=== PATIENT | female | born 1980 | race Caucasian/White ===

== ENCOUNTER 2017-03-10 12:34 | Emergency (ER) | payer SELFPAY ==
[2017-03-10 13:00] VITALS: BP 106/62; PULSE 57; TEMP 99.1; BMI 25.9
--- NOTE | 2017-03-10 13:02 | PDOC ---
History of Present Illness - General Chief Complaint: Headache Stated Complaint: HEADACHE Time Seen by Provider: 03/10/17 13:01 History Source: Patient, Old Records Exam Limitations: No Limitations - History of Present Illness Initial Comments: 03/10/17 13:12 36-year-old female with no significant past medical history presents to the emergency Department with complaints of 6 month history of posterior headache that has occurred almost daily. The patient states that on Friday she experienced the headache associated with some right-sided facial numbness and tingling that resolved by the next day. She is taken Tylenol with some relief of the pain. She denies URI symptoms. She denies photophobia, nausea, vomiting or neck stiffness. She has not sought medical attention until today because she said that she felt dizzy. Past History - Past Medical History Allergies/Adverse Reactions: Allergies Allergy/AdvReac Type Severity Reaction Status Date / Time No Known Allergies Allergy Verified 03/10/17 13:09 Home Medications: Ambulatory Orders Ambien 10 mg PO DAILY PRN 03/10/17 Anemia: No Asthma: No Cancer: No Cardiac Disorders: No CVA: No COPD: No CHF: No Dementia: No Diabetes: No GI Disorders: Yes (DIVERTICULITIS) Disorders: No HTN: No Hypercholesterolemia: Yes Liver Disease: No Seizures: No Thyroid Disease: No - Surgical History Abdominal Surgery: Yes (HIATAL HERNIA: 06/27/15) Appendectomy: Yes Cardiac Surgery: No Cholecystectomy: No Gastric Stapling: (GASTRIC BYPASS/SLEEVE) Lung Surgery: No Neurologic Surgery: No Orthopedic Surgery: No - Reproductive History (#): 4 Para: 2 Ectopic : Yes Therapeutic (s) & number: No Spontaneous : 1 - Immunization History Td Vaccination: Yes TDAP Vaccination: Yes Immunization Up to Date: Yes - Psycho/Social/Smoking Cessation Hx Anxiety: No Suicidal Ideation: No Smoking History: Current every day smoker Have you smoked in the past 12 months: Yes Number of Cigarettes Smoked Daily: 4 Information on smoking cessation initiated: Yes 'Breaking Loose' booklet given: 03/10/17 Hx Alcohol Use: No Drug/Substance Use Hx: No Substance Use Type: None Hx Substance Use Treatment: No Review of Systems - Review of Systems Able to Perform ROS?: Yes Is the patient limited Wolof proficient: No Constitutional: No: Symptoms Reported HEENTM: No: Symptoms Reported Respiratory: No: Symptoms reported Cardiac (ROS): No: Symptoms Reported ABD/GI: No: Symptoms Reported : No: Symptoms Reported Musculoskeletal: No: Symptoms Reported Integumentary: No: Symptoms Reported Neurological: Yes: See HPI *Physical Exam - Vital Signs Last Vital Signs Temp Pulse Resp BP Pulse Ox 99.1 F 57 L 16 106/62 99 03/10/17 12:55 03/10/17 12:55 03/10/17 12:55 03/10/17 12:55 03/10/17 12:55 - Physical Exam Comments: 03/10/17 13:13 GENERAL: Well developed, well nourished. Awake and alert. No acute distress. HEENT: Normocephalic, atraumatic. PERRLA, EOMI. No conjunctival pallor. Sclera are non- icteric. Moist mucous membranes. Oropharynx is clear. NECK: Supple. Full ROM. No JVD. No lymphadenopathy. CARDIOVASCULAR: Regular rate and rhythm. No murmurs, rubs, or gallops. Distal pulses are 2+ and symmetric. PULMONARY: No evidence of respiratory distress. Lungs clear to auscultation bilaterally. No wheezing, rales or rhonchi. ABDOMINAL: Soft. Non-tender. Non-distended. No rebound or guarding. No organomegaly. Normoactive bowel sounds. MUSCULOSKELETAL Normal range of motion at all joints. No bony deformities or tenderness. No CVA tenderness. EXTREMITIES: No cyanosis. No clubbing. No edema. No calf tenderness. SKIN: Warm and dry. Normal capillary refill. No rashes. No jaundice. NEUROLOGICAL: Alert, awake, appropriate. Cranial nerves 2-12 intact. Grossly non-focal exam. PSYCHIATRIC: Cooperative. Good eye contact. Appropriate mood and affect. Medical Decision Making - Medical Decision Making 03/10/17 13:14 36-year-old female with no significant past medical history who presents the emergency department with chronic posterior headaches. Differential diagnosis includes but is not limited to: Intracranial mass, Chiari malformation, migraine headache, tension headache. Plan: 1. CT head 2. Pain management 3. Urine analysis and urine 4. Observe and reevaluate 5. CT head is negative will discharge home with referral to neurology and follow -up with her primary care physician. 03/10/17 13:54 Addendum: CT head is negative. *DC/Admit/Observation/Transfer Diagnosis at time of Disposition: Headache - Discharge Dispostion Disposition: HOME Condition at time of disposition: Stable Admit: No - Patient Instructions Printed Discharge Instructions: DI for Headache Additional Instructions: You have chronic headaches. Please follow-up with your primary care physician who will refer you to see a neurologist. You h=may take tylenol or ibuprofen for the pain. Return to the ED if your symptoms persist, worsen or new symptoms arise.
[2017-03-10 13:16] LABS: URINE APPEARANCE Clear; URINE BILIRUBIN Negative (NEGATIVE); URINE GLUCOSE (UA) Negative (NEGATIVE); URINE KETONE Negative (NEGATIVE); URINE LEUK ESTERASE Negative (NEGATIVE); URINE NITRITE Negative (NEGATIVE); URINE PROTEIN Negative (NEGATIVE); URINE UROBILINOGEN 0.2 E.U/dl (0.2-1.0)
[2017-03-10 13:17] LABS: URINE BLOOD TRACE (NEGATIVE); URINE COLOR YELLOW
[2017-03-10 14:20] LABS: URINE MUCUS 1+; URINE WBC 0-1 (3-5)
== END 2017-03-10 14:00 | disposition home or self-care (01) ==
LOC: FER 12:34
DX: R51 Headache (principal); F17.210 Nicotine dependence, cigarettes, uncomplicated; E78.00 Pure hypercholesterolemia, unspecified; Z98.84 Bariatric surgery status
CPT/HCPCS: 70450-TC; 81003; 81015; 84703; 99283-25

== ENCOUNTER 2017-08-30 14:37 | Emergency (ER) | payer BC ==
[2017-08-30 15:09] VITALS: BMI 26.7
--- NOTE | 2017-08-30 15:23 | PDOC ---
History of Present Illness - General Chief Complaint: Weakness Stated Complaint: WEAKNESS, CHILLS History Source: Patient Exam Limitations: No Limitations - History of Present Illness Initial Comments: 08/30/17 17:51 This 37 yr old female with c/o facial numbness/burning, cold sore on the right side of lip, episode of chest pain and shortness of breath x 1 earlier. She has a hx of gastric sleeve and marjan several years ago. She is not on any medications. 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 Pt was seen in February noted for several similar complaints . She did not follow [facility] a neurologist like suggested. 08/30/17 17:53 Past History - Past Medical History Allergies/Adverse Reactions: Allergies Allergy/AdvReac Type Severity Reaction Status Date / Time No Known Allergies Allergy Verified 08/30/17 15:09 Home Medications: Ambulatory Orders Ambien 10 mg PO DAILY PRN 03/10/17 Acyclovir [Zovirax -] 400 mg PO TID #21 tablet 08/30/17 Anemia: No Asthma: No Cancer: No Cardiac Disorders: No CVA: No COPD: No CHF: No Dementia: No Diabetes: No GI Disorders: Yes (DIVERTICULITIS) Disorders: No HTN: No Hypercholesterolemia: Yes Liver Disease: No Seizures: No Thyroid Disease: No - Surgical History Abdominal Surgery: Yes (HIATAL HERNIA: 06/27/15) Appendectomy: Yes Cardiac Surgery: No Cholecystectomy: No Gastric Stapling: (GASTRIC BYPASS/SLEEVE) Lung Surgery: No Neurologic Surgery: No Orthopedic Surgery: No - Reproductive History (#): 4 Para: 2 Ectopic : Yes Therapeutic (s) & number: No Spontaneous : 1 - Immunization History Td Vaccination: Yes TDAP Vaccination: Yes Immunization Up to Date: Yes - Suicide/Smoking/Psychosocial Hx Smoking History: Current every day smoker Have you smoked in the past 12 months: Yes Number of Cigarettes Smoked Daily: 5 Information on smoking cessation initiated: No 'Breaking Loose' booklet given: 03/10/17 Hx Alcohol Use: No Drug/Substance Use Hx: No Substance Use Type: None Hx Substance Use Treatment: No Review of Systems - Review of Systems Able to Perform ROS?: Yes Constitutional: No: Chills, Fever, Night Sweats HEENTM: Yes: Other (lip with leison suspicious for herpetic). No: Symptoms Reported Respiratory: Yes: Shortness of Breath. No: Cough, SOB with Exertion, SOB at Rest, Productive cough Cardiac (ROS): Yes: Chest Pain. No: Lightheadedness, Palpitations, Chest Tightness ABD/GI: No: Symptoms Reported : No: Symptoms Reported Musculoskeletal: No: Symptoms Reported Integumentary: No: Symptoms Reported Neurological: Yes: See HPI, Headache, Numbness, Paresthesia, Tingling, Other ( right side facial numb, tingling, burning for past 3 days. ). No: Seizure, Tremors, Weakness, Unsteady Gait, Ataxia, Dizziness Psychiatric: Yes: Anxiety Endocrine: No: Symptoms Reported Hematologic/Lymphatic: No: Symptoms Reported *Physical Exam - Vital Signs Last Vital Signs Temp Pulse Resp BP Pulse Ox 97.9 F 56 L 18 104/60 98 08/30/17 14:37 08/30/17 14:37 08/30/17 14:37 08/30/17 14:37 08/30/17 14:37 - Physical Exam General Appearance: Yes: Appropriately Dressed HEENT: positive: Normal Voice Respiratory/Chest: positive: Lungs Clear Cardiovascular: positive: Regular Rhythm, Regular Rate Gastrointestinal/Abdominal: positive: Normal Bowel Sounds, Flat, Soft Musculoskeletal: positive: Normal Inspection Extremity: positive: Normal Capillary Refill, Normal Inspection Integumentary: positive: Normal Color, Dry Neurologic: positive: adjunct trainer II-XII NML intact (neg cincinati scale, smile intact, grimace intact, EOM norm, ), Fully Oriented, Alert, Numbness. negative: EOM Palsy, Facial Droop, Confused ED Treatment Course - LABORATORY CBC & Chemistry Diagram: 08/30/17 16:14 08/30/17 16:14 Medical Decision Making - Medical Decision Making 08/30/17 18:01 Pt seen and examined. Pt with family at bedside with c/o right side facial numbness and right lip cold sore, with mild headache, one episode of chest and sob. A/P: -labs -head CT -fluids -reglan -urine It is likely that these symptoms are due to viral infection with noted lip leision and facial numb/tingling suggestive of pending Phillips's, possible migraine , herpetic lesion. WBC noted to be elevated to 12. 7 but no shift, fever, chills. she is noted to be anxious and suspicious for anxiousness causing other vague symptoms pending results. 08/30/17 18:37 Labs noted, wbc elevated. head ct pending plan on discharging to home with antiviral and have her follow up with neurology and PMD *DC/Admit/Observation/Transfer Diagnosis at time of Disposition: Viral infection Headache Qualifiers: Headache type: unspecified Headache chronicity pattern: acute headache Intractability: not intractable Qualified Code(s): R51 - Headache; R51 - Headache - Discharge Dispostion Condition at time of disposition: Stable Admit: No - Patient Instructions Printed Discharge Instructions: DI for Phillips's Palsy Additional Instructions: You have been seen and treated for your symptoms -headache may be migraine and needs a work up with neurology, you received pain meds and fluids for this treatment -facial numbness/tingling may be an early onset of [place]' Palsy and I am discharging you with acyclovir for one week -chest pain and shortness of breath episode is now subsided without treatment and it is suggestive of anxiety with recent viral illness that is presenting. Any symptoms that worsen, please return to ER. - Post Discharge Activity Forms/Work/School Notes: Back to Work
[2017-08-30] MEDS ORDERED: METOCLOPRAMIDE HCL INJECTION 10 MG/2 ML VIAL IVPUSH ONE (15:44)
[2017-08-30] MEDS ORDERED: ACETAMINOPHEN 1000 MG/100 ML VIAL (NON FORMULARY) IVPB ONE (15:44)
[2017-08-30] MEDS ORDERED: SODIUM CHLORIDE 1,000 ML IV STA (15:44)
[2017-08-30 16:24] LABS: BASOPHIL 0.5 % (0-2.0); EOSINOPHIL 1.3 % (0-4.5); MCH 25.7 pg (25.7-33.7); MEAN CELL VOLUME 80.3 fl (80-96); MEAN PLT VOLUME 9.8 fl (7.5-11.1); NEUTROPHILS 63.1 % (42.8-82.8); PLATELET COUNT 225 K/MM3 (134-434); RDW 15.7 % (11.6-15.6); WHITE BLOOD COUNT 12.4 K/mm3 (4.0-10.0)
[2017-08-30 16:27] LABS: URINE APPEARANCE CLEAR; URINE BILIRUBIN NEGATIVE (NEGATIVE); URINE BLOOD NEGATIVE (NEGATIVE); URINE COLOR LTYELLOW; URINE GLUCOSE (UA) NEGATIVE (NEGATIVE); URINE KETONE NEGATIVE (NEGATIVE); URINE NITRITE NEGATIVE (NEGATIVE); URINE PROTEIN NEGATIVE (NEGATIVE); URINE UROBILINOGEN NEGATIVE mg/dL (0.2-1.0)
[2017-08-30] MEDS ORDERED: METOCLOPRAMIDE HCL INJECTION 10 MG/2 ML VIAL ONE (16:31)
[2017-08-30 16:53] LABS: ALBUMIN 3.6 g/dl (3.4-5.0); ALK PHOS 51 U/L (45-117); ANION GAP 7 (8-16); BILIRUBIN,TOTAL 0.2 mg/dL (0.2-1.0); CALCIUM 8.9 mg/dL (8.5-10.1); CO2 29 mmol/L (21-32); CREATININE 0.8 mg/dL (0.55-1.02); GLUCOSE,RANDOM 75 mg/dL (74-106); SGOT/AST 11 U/L (15-37); SGPT/ALT 15 U/L (12-78); TOT PROT 7.1 g/dl (6.4-8.2)
[2017-08-30 18:23] LABS: URINE LEUK ESTERASE Negative (NEGATIVE)
[2017-08-30] MEDS ORDERED: KETOROLAC TROMETHAMINE 30 MG/1 ML VIAL IVPUSH ONE (19:32)
[2017-08-30] MEDS ORDERED: KETOROLAC TROMETHAMINE 30 MG/1 ML VIAL ONE (19:36)
--- NOTE | 2017-08-30 20:00 | PDOC ---
*Physical Exam - Vital Signs Last Vital Signs Temp Pulse Resp BP Pulse Ox 97.9 F 56 L 18 104/60 98 08/30/17 14:37 08/30/17 14:37 08/30/17 14:37 08/30/17 14:37 08/30/17 14:37 - Physical Exam Comments: 08/30/17 19:59 CAT scan head without contrast: The brain parenchymal demonstrates normal attenuation without focal mass or mass effect. The ventricles are not enlarged. No acute intracranial hemorrhage or acute infarction. ED Treatment Course - LABORATORY CBC & Chemistry Diagram: 08/30/17 16:14 08/30/17 16:14 - ADDITIONAL ORDERS Additional order review: Laboratory Results 08/30/17 08/30/17 16:14 16:14 Sodium 139 Potassium 4.1 Chloride 103 Carbon Dioxide 29 Anion Gap 7 L BUN 11 D Creatinine 0.8 D Creat Clearance w eGFR > 60 Random Glucose 75 Calcium 8.9 Total Bilirubin 0.2 D AST 11 L ALT 15 D Alkaline Phosphatase 51 Total Protein 7.1 Albumin 3.6 Urine Color Ltyellow Urine Appearance Clear Urine pH 5.0 Ur Specific [place] 1.020 Urine Protein Negative Urine Glucose (UA) Negative Urine Ketones Negative Urine Blood Negative Urine Nitrite Negative Urine Bilirubin Negative Urine Urobilinogen Negative Ur Leukocyte Esterase Negative Urine HCG, Qual Negative 08/30/17 16:14 RBC 4.94 MCV 80.3 MCHC 32.0 RDW 15.7 H MPV 9.8 Neutrophils % 63.1 Lymphocytes % 27.3 D Monocytes % 7.8 Eosinophils % 1.3 D Basophils % 0.5 - Medications Given in the ED: ED Medications Discontinued Medications Generic Name Dose Route Start Last Admin Trade Name Rosalba PRN Reason Stop Dose Admin Acetaminophen 1,000 mg 08/30/17 15:44 08/30/17 16:15 Ofirmev Injection - IVPB 08/30/17 15:45 1,000 mg ONCE ONE Administration Sodium Chloride 1,000 mls @ 1,000 mls/hr 08/30/17 15:44 08/30/17 16:28 Normal Saline - IV 08/30/17 16:43 1,000 mls/hr ASDIR STA Administration Ketorolac Tromethamine 30 mg 08/30/17 19:32 08/30/17 19:34 Toradol Injection - IVPUSH 10/07/17 19:33 30 mg ONCE ONE Administration Metoclopramide HCl 10 mg 08/30/17 15:44 08/30/17 16:32 Reglan Injection - IVPUSH 08/30/17 15:45 10 mg ONCE ONE Administration *DC/Admit/Observation/Transfer Diagnosis at time of Disposition: Viral infection Headache Qualifiers: Headache type: unspecified Headache chronicity pattern: acute headache Intractability: not intractable Qualified Code(s): R51 - Headache - Prescriptions Prescriptions: Acyclovir [Zovirax -] 400 mg PO TID #21 capsule - Referrals - Patient Instructions Printed Discharge Instructions: DI for Phillips's Palsy Additional Instructions: You have been seen and treated for your symptoms -headache may be migraine and needs a work up with neurology, you received pain meds and fluids for this treatment -facial numbness/tingling may be an early onset of [place]' Palsy and I am discharging you with acyclovir for one week -chest pain and shortness of breath episode is now subsided without treatment and it is suggestive of anxiety with recent viral illness that is presenting. Any symptoms that worsen, please return to ER. Print Language: BRUNEIAN - Post Discharge Activity Forms/Work/School Notes: Back to Work
[2017-08-30 20:14] VITALS: BP 106/59; PULSE 65; TEMP 98.4
[2017-08-30] MEDS ORDERED: ACYCLOVIR 400 MG TABLET PO ONE (20:53)
[2017-08-30] MEDS ORDERED: ACYCLOVIR 200 MG CAPSULE ONE (20:56)
--- NOTE | 2017-08-31 08:09 | PDOC ---
*Physical Exam - Vital Signs Last Vital Signs Temp Pulse Resp BP Pulse Ox 98.4 F 65 18 106/59 98 08/30/17 20:13 08/30/17 20:13 08/30/17 20:13 08/30/17 20:13 08/30/17 20:13 ED Treatment Course - LABORATORY CBC & Chemistry Diagram: 08/30/17 16:14 08/30/17 16:14 - ADDITIONAL ORDERS Additional order review: 08/30/17 16:14 RBC 4.94 MCV 80.3 MCHC 32.0 RDW 15.7 H MPV 9.8 Neutrophils % 63.1 Lymphocytes % 27.3 D Monocytes % 7.8 Eosinophils % 1.3 D Basophils % 0.5 - Medications Given in the ED: ED Medications Discontinued Medications Generic Name Dose Route Start Last Admin Trade Name Freq PRN Reason Stop Dose Admin Acetaminophen 1,000 mg 08/30/17 15:44 08/30/17 16:15 Ofirmev Injection - IVPB 08/30/17 15:45 1,000 mg ONCE ONE Administration Acyclovir 400 mg 08/30/17 20:53 08/30/17 20:59 Zovirax - PO 08/30/17 20:54 400 mg ONCE ONE Administration Sodium Chloride 1,000 mls @ 1,000 mls/hr 08/30/17 15:44 08/30/17 16:28 Normal Saline - IV 08/30/17 16:43 1,000 mls/hr ASDIR STA Administration Ketorolac Tromethamine 30 mg 08/30/17 19:32 08/30/17 19:34 Toradol Injection - IVPUSH 08/30/17 19:33 30 mg ONCE ONE Administration Metoclopramide HCl 10 mg 08/30/17 15:44 08/30/17 16:32 Reglan Injection - IVPUSH 08/30/17 15:45 10 mg ONCE ONE Administration Medical Decision Making - Medical Decision Making 08/31/17 08:05 Agree with SWATCH CUTTER/PA's assessment and plan. 37 F with facial tingling, 2nd visit here for same complaint. Pt with NONFOCAL neuro exam upon my evaluation. Normal cranial nerves, normal sensation, normal strength in all extremities. Pt reported transient episode of chest pain/SOB earlier in the day that has since subsided. She states that she has had multiple similar episodes in the past in the context of anxiety, which she believes is the cause of her episode today. I offered her EKG and checking cardiac enzymes to r/o ACS. However, pt refusing at this time, stating she feels fine and does not wish to have additional labs drawn. Pt with no cardiac risk factors, so my suspicion for ACS extremely low. Labs and CTH wnl. Pt with no neuro deficits at this time and no complaints. Pt well appearing with normal vitals. Clinically stable for DC with neuro f/u. *DC/Admit/Observation/Transfer Diagnosis at time of Disposition: Viral infection Headache Qualifiers: Headache type: unspecified Headache chronicity pattern: acute headache Intractability: not intractable Qualified Code(s): R51 - Headache - Prescriptions Prescriptions: RX: Acyclovir [Zovirax -] 400 mg PO TID #21 capsule - Referrals - Patient Instructions Printed Discharge Instructions: DI for Phillips's Palsy Additional Instructions: You have been seen and treated for your symptoms -headache may be migraine and needs a work up with neurology, you received pain meds and fluids for this treatment -facial numbness/tingling may be an early onset of [place]' Palsy and I am discharging you with acyclovir for one week -chest pain and shortness of breath episode is now subsided without treatment and it is suggestive of anxiety with recent viral illness that is presenting. Any symptoms that worsen, please return to ER. Print Language: PASHTO - Post Discharge Activity Forms/Work/School Notes: Back to Work - Attestations Physician Attestion: 08/31/17 08:09 I, Dr. Kevin Chaney MD, attest that this document has been prepared under my direction and personally reviewed by me in its entirety. I further attest, that it accurately reflects all work, treatment, procedures and medical decision -making performed by me.
--- NOTE | 2017-09-05 09:20 | EKG ---
Test Reason : Blood Pressure : / mmHG Vent. Rate : 050 BPM Atrial Rate : 050 BPM P-R Int : 118 ms QRS Dur : 080 ms QT Int : 432 ms P-R-T Axes : 059 050 040 degrees QTc Int : 393 ms SINUS BRADYCARDIA WHEN COMPARED WITH ECG OF 03-JUL-2015 21:59, NO SIGNIFICANT CHANGE WAS FOUND Confirmed by ROXANNA OKEEFE MD ([id number]) on 09/05/2017 9:20:16 AM Referred By: Confirmed By:ROXANNA OKEEFE MD
== END 2017-08-30 20:50 | disposition home or self-care (01) ==
LOC: JER 14:37
PROC: 3E033NZ Introduction of Analgesics, Hypnotics, Sedatives into Peripheral Vein, Percutaneous Approach (ICD-10-PCS; principal; 2017-08-30)
PROC: 3E0333Z Introduction of Anti-inflammatory into Peripheral Vein, Percutaneous Approach (ICD-10-PCS; 2017-08-30)
PROC: 3E033GC Introduction of Other Therapeutic Substance into Peripheral Vein, Percutaneous Approach (ICD-10-PCS; 2017-08-30)
PROC: 3E0337Z Introduction of Electrolytic and Water Balance Substance into Peripheral Vein, Percutaneous Approach (ICD-10-PCS; 2017-08-30)
DX: B34.9 Viral infection, unspecified (principal); R51 Headache; Z98.84 Bariatric surgery status; E78.00 Pure hypercholesterolemia, unspecified; F17.210 Nicotine dependence, cigarettes, uncomplicated
CPT/HCPCS: 36415; 70450-TC; 80053; 81003; 84703; 85025; 93005; 93010; 99283-25

== ENCOUNTER 2022-01-28 15:04 | Emergency (ER) | payer BC, OTHER ==
[2022-01-28 16:23] VITALS: TEMP 98.4; BMI 31.0
[2022-01-28] MEDS ORDERED: FAMOTIDINE 10 MG TABLET PO ONE (17:28)
[2022-01-28] MEDS ORDERED: MECLIZINE HCL 25 MG TABLET (FP) PO ONE (17:28)
[2022-01-28] MEDS ORDERED: ONDANSETRON *ODT* 4 MG TABLET SL ONE (17:28)
[2022-01-28] MEDS ORDERED: ACETAMINOPHEN 500 MG TABLET (FP) PO ONE (17:28)
[2022-01-28] MEDS ORDERED: MAG HYDROX/AL HYDROX/SIMETH -MYLANTA- ORAL SUSPENSION PO ONE (17:28)
[2022-01-28] MEDS ORDERED: SODIUM CHLORIDE 0.9% 500 ML INFUS.BAG IV ONE (17:29)
[2022-01-28] MEDS ORDERED: ACETAMINOPHEN 325 MG TABLET (FP) ONE (17:58)
[2022-01-28] MEDS ORDERED: ONDANSETRON *ODT* 4 MG TABLET ONE (17:58)
[2022-01-28] MEDS ORDERED: FAMOTIDINE 10 MG TABLET ONE (17:58)
[2022-01-28] MEDS ORDERED: MECLIZINE HCL 25 MG TABLET (FP) ONE (17:58)
[2022-01-28] MEDS ORDERED: MAG HYDROX/AL HYDROX/SIMETH 30 ML UNIT-DOSE CUP ONE (17:59)
[2022-01-28 18:07] LABS: BASO % 0.3 % (0-2.0); EOS % 0.3 % (0-4.5); HEMATOCRIT 30.5 % (32.4-45.2); HEMOGLOBIN 9.4 GM/dL (10.7-15.3); MCH 20.7 pg (25.7-33.7); MCHC 30.6 g/dl (32.0-36.0); MEAN CELL VOLUME 67.6 fl (80-96); MEAN PLT VOLUME 8.8 fl (7.5-11.1); MONO % 5.6 % (3.8-10.2); NEUT % 79.8 % (42.8-82.8); PLATELET COUNT 335 10^3/uL (134-434); RBC 4.51 M/mm3 (3.60-5.2); RDW 16.8 % (11.6-15.6); WHITE BLOOD COUNT 11.6 K/mm3 (4.0-10.0)
[2022-01-28 18:31] LABS: CALCIUM 9.5 mg/dL (8.5-10.1)
[2022-01-28 18:32] LABS: ALBUMIN 3.2 g/dl (3.4-5.0); MAGNESIUM 2.2 mg/dL (1.8-2.4)
[2022-01-28 18:35] LABS: CREATININE 0.7 mg/dL (0.55-1.3)
[2022-01-28 18:36] LABS: BILIRUBIN,TOTAL 0.3 mg/dL (0.2-1); TOT PROT 6.7 g/dl (6.4-8.2)
[2022-01-28 19:18] VITALS: BP 98/47; PULSE 60
[2022-01-28] MEDS ORDERED: METOCLOPRAMIDE HCL INJECTION 10 MG/2 ML VIAL IVPUSH ONE (19:38)
[2022-01-28] MEDS ORDERED: diphenhydrAMINE HCL 25 MG CAPSULE (FP) PO ONE ×2 (19:39→19:45)
[2022-01-28] MEDS ORDERED: METOCLOPRAMIDE HCL INJECTION 10 MG/2 ML VIAL ONE (19:45)
[2022-01-28 19:54] LABS: URINE APPEARANCE CLEAR; URINE BILIRUBIN NEGATIVE (NEGATIVE); URINE COLOR YELLOW; URINE GLUCOSE (UA) NEGATIVE (NEGATIVE); URINE KETONE NEGATIVE (NEGATIVE); URINE LEUK ESTERASE NEGATIVE (NEGATIVE); URINE NITRITE NEGATIVE (NEGATIVE); URINE PROTEIN NEGATIVE (NEGATIVE); URINE UROBILINOGEN 0.2 mg/dL (0.2-1.0)
[2022-01-28 23:26] LABS: ANISOCYTOSIS 2+; MACROCYTOSIS 0; OVALOCYTE 2+; TEAR DROP CELLS 1+
== END 2022-01-28 20:59 | disposition home or self-care (01) ==
LOC: JER 15:04
PROC: 3E033GC Introduction of Other Therapeutic Substance into Peripheral Vein, Percutaneous Approach (ICD-10-PCS; principal; 2022-01-28)
DX: R51.9 Headache, unspecified (principal); R19.7 Diarrhea, unspecified; R10.9 Unspecified abdominal pain
CPT/HCPCS: 36415; 71045-TC-FY; 80053; 81003; 82962; 83605; 83690; 83735; 84484; 84703; 85025; 86850; 86900; 86901; 87086; 93005; 93010; 99285-25; Q0162

== ENCOUNTER 2022-03-09 11:15 | Emergency (ER) | payer BC ==
[2022-03-09 11:24] VITALS: BMI 31.9
[2022-03-09] MEDS ORDERED: METOCLOPRAMIDE HCL INJECTION 10 MG/2 ML VIAL IVPB ONE (11:50)
[2022-03-09] MEDS ORDERED: SODIUM CHLORIDE 0.9% 500 ML INFUS.BAG IV ONE (11:50)
[2022-03-09] MEDS ORDERED: ACETAMINOPHEN 1000 MG/100 ML BAG IVPB ONE (11:50)
[2022-03-09] MEDS ORDERED: ACETAMINOPHEN INJECTION 100 ML IVPB ONE (12:11)
[2022-03-09] MEDS ORDERED: METOCLOPRAMIDE HCL INJECTION 10 MG/2 ML VIAL ONE (12:11)
[2022-03-09 12:18] LABS: BASO % 0.5 % (0-2.0); EOS % 0.6 % (0-4.5); HEMATOCRIT 32.7 % (32.4-45.2); HEMOGLOBIN 10.5 GM/dL (10.7-15.3); LYMPH % 26.3 % (8-40); MCH 22.6 pg (25.7-33.7); MCHC 32.1 g/dl (32.0-36.0); MEAN CELL VOLUME 70.4 fl (80-96); MEAN PLT VOLUME 8.7 fl (7.5-11.1); MONO % 6.3 % (3.8-10.2); NEUT % 66.3 % (42.8-82.8); PLATELET COUNT 309 10^3/uL (134-434); RBC 4.64 M/mm3 (3.60-5.2); RDW 23.3 % (11.6-15.6); WHITE BLOOD COUNT 7.1 K/mm3 (4.0-10.0)
[2022-03-09 12:28] LABS: INR 0.99 (0.83-1.09); PROTHROMBIN TIME (PATIENT) 11.4 SEC (9.7-13.0)
[2022-03-09 12:30] LABS: ACTIVATED PTT 27.6 SECONDS (25.2-36.5)
[2022-03-09 12:31] LABS: PH,URINE 8.5 (5.0-8.0); URINE APPEARANCE CLOUDY; URINE BILIRUBIN NEGATIVE (NEGATIVE); URINE COLOR YELLOW; URINE GLUCOSE (UA) NEGATIVE (NEGATIVE); URINE KETONE NEGATIVE (NEGATIVE); URINE LEUK ESTERASE NEGATIVE (NEGATIVE); URINE NITRITE NEGATIVE (NEGATIVE); URINE PROTEIN NEGATIVE (NEGATIVE)
[2022-03-09 12:49] LABS: ALBUMIN 3.4 g/dl (3.4-5.0); BLOOD UREA NITROGEN 12.8 mg/dL (7-18); CALCIUM 8.8 mg/dL (8.5-10.1); MAGNESIUM 2.2 mg/dL (1.8-2.4)
[2022-03-09 12:52] LABS: CREATININE 0.9 mg/dL (0.55-1.3)
[2022-03-09 12:54] LABS: BILIRUBIN,TOTAL 0.2 mg/dL (0.2-1); TOT PROT 6.6 g/dl (6.4-8.2)
[2022-03-09] MEDS ORDERED: MECLIZINE HCL 25 MG TABLET (FP) PO ONE (13:24)
[2022-03-09] MEDS ORDERED: MECLIZINE HCL 25 MG TABLET (FP) ONE ×2 (13:32→13:35)
[2022-03-09 13:42] LABS: ANISOCYTOSIS 3+; MACROCYTOSIS 0; OVALOCYTE 1+
[2022-03-09 14:04] VITALS: BP 133/78; PULSE 78; TEMP 97.9
== END 2022-03-09 14:03 | disposition home or self-care (01) ==
LOC: JER 11:15
PROC: 3E0333Z Introduction of Anti-inflammatory into Peripheral Vein, Percutaneous Approach (ICD-10-PCS; principal; 2022-03-09)
PROC: 3E033GC Introduction of Other Therapeutic Substance into Peripheral Vein, Percutaneous Approach (ICD-10-PCS; 2022-03-09)
DX: R51.9 Headache, unspecified (principal)
CPT/HCPCS: 36415; 70450-TC; 80053; 81003; 83735; 84703; 85025; 85610; 85730; 87086; 93005; 93010; 99285-25

== ENCOUNTER 2022-10-08 20:22 | Emergency (ER) | payer BC ==
[2022-10-08 20:28] VITALS: BP 120/80; PULSE 51; RESP 18; TEMP 98.2; BMI 34.3
[2022-10-08] MEDS ORDERED: KETOROLAC TROMETHAMINE 15 MG/ML VIAL IVPUSH ONE (21:27)
[2022-10-08] MEDS ORDERED: FAMOTIDINE 20 MG/50 ML IVPB 20 MG/50 ML MG IVPB ONE (21:27)
[2022-10-08] MEDS ORDERED: SODIUM CHLORIDE 0.9% 500 ML INFUS.BAG IV ONE (21:27)
[2022-10-08] MEDS ORDERED: MAG HYDROX/AL HYDROX/SIMETH 30 ML UNIT-DOSE CUP PO ONE (21:27)
[2022-10-08] MEDS ORDERED: KETOROLAC TROMETHAMINE 15 MG/ML VIAL ONE (22:05)
[2022-10-08] MEDS ORDERED: MAG HYDROX/AL HYDROX/SIMETH 30 ML UNIT-DOSE CUP ONE (22:05)
[2022-10-08] MEDS ORDERED: FAMOTIDINE 10 MG/ML VIAL IVPB ONE (22:05)
[2022-10-08 22:26] LABS: BASO % 0.4 % (0-2.0); HEMATOCRIT 37.3 % (32.4-45.2); HEMOGLOBIN 12.5 GM/dL (10.7-15.3); LYMPH % 27.9 % (8-40); MCH 27.8 pg (25.7-33.7); MCHC 33.6 g/dl (32.0-36.0); MEAN CELL VOLUME 82.7 fl (80-96); MONO % 5.8 % (3.8-10.2); NEUT % 64.9 % (42.8-82.8); PLATELET COUNT 310 10^3/uL (134-434); RBC 4.51 M/mm3 (3.60-5.2); RDW 13.2 % (11.6-15.6); WHITE BLOOD COUNT 9.9 K/mm3 (4.0-10.0)
[2022-10-08 22:54] LABS: CHLORIDE 106 mmol/L (98-107); SODIUM 142 mmol/L (136-145)
[2022-10-08 22:56] LABS: ALBUMIN 3.1 g/dl (3.4-5.0); ANION GAP 7 MMOL/L (8-16); BLOOD UREA NITROGEN 6.6 mg/dL (7-18); CALCIUM 8.9 mg/dL (8.5-10.1); CO2 30 mmol/L (21-32); GLUCOSE,RANDOM 82 mg/dL (74-106)
[2022-10-08 22:59] LABS: CREATININE 0.7 mg/dL (0.55-1.3); SGOT/AST 10 U/L (15-37); SGPT/ALT 15 U/L (13-61)
[2022-10-08 23:01] LABS: BILIRUBIN,TOTAL 0.2 mg/dL (0.2-1); TOT PROT 6.4 g/dl (6.4-8.2)
[2022-10-08 23:02] LABS: ALK PHOS 55 U/L (45-117)
== END 2022-10-08 23:39 | disposition home or self-care (01) ==
LOC: JER 20:22
PROC: 3E033GC Introduction of Other Therapeutic Substance into Peripheral Vein, Percutaneous Approach (ICD-10-PCS; principal; 2022-10-08)
PROC: 3E0333Z Introduction of Anti-inflammatory into Peripheral Vein, Percutaneous Approach (ICD-10-PCS; 2022-10-08)
DX: K21.00 Gastro-esophageal reflux disease with esophagitis, without bleeding (principal); R07.9 Chest pain, unspecified
CPT/HCPCS: 0241U-QW; 36415; 71045-TC-FY; 80053; 83735; 84443; 84484; 84702; 85025; 85379; 93005; 93010; 99285-25

== ENCOUNTER 2023-06-22 01:05 | Emergency (ER) | payer BC ==
[2023-06-22 01:13] VITALS: BP 115/77; PULSE 61; RESP 20; TEMP 98.1; BMI 26.4
[2023-06-22] MEDS ORDERED: FAMOTIDINE 20 MG/50 ML IVPB 20 MG/50 ML MG IVPB ONE ×2 (01:31→01:37)
[2023-06-22] MEDS ORDERED: ACETAMINOPHEN 1000 MG/100 ML BAG IVPB ONE (01:31)
[2023-06-22] MEDS ORDERED: MAG HYDROX/AL HYDROX/SIMETH 30 ML UNIT-DOSE CUP PO ONE (01:32)
[2023-06-22] MEDS ORDERED: MAG HYDROX/AL HYDROX/SIMETH 30 ML UNIT-DOSE CUP ONE (01:37)
[2023-06-22] MEDS ORDERED: ACETAMINOPHEN INJECTION 100 ML IVPB ONE (01:38)
[2023-06-22 02:29] LABS: BASO % 0.4 % (0-2.0); EOS % 0.4 % (0-4.5); HEMATOCRIT 35.7 % (32.4-45.2); HEMOGLOBIN 12.1 GM/dL (10.7-15.3); LYMPH % 25.6 % (8-40); MCH 27.2 pg (25.7-33.7); MCHC 33.9 g/dl (32.0-36.0); MEAN CELL VOLUME 80.2 fl (80-96); MEAN PLT VOLUME 9.1 fl (7.5-11.1); MONO % 4.5 % (3.8-10.2); NEUT % 69.1 % (42.8-82.8); PLATELET COUNT 254 10^3/uL (134-434); RBC 4.45 M/mm3 (3.60-5.2); RDW 14.2 % (11.6-15.6); WHITE BLOOD COUNT 10.1 K/mm3 (4.0-10.0)
[2023-06-22] MEDS ORDERED: ACETAMINOPHEN 500 MG TABLET (FP) PO ONE (02:49)
[2023-06-22] MEDS ORDERED: FAMOTIDINE 20 MG TABLET PO ONE (02:49)
[2023-06-22] MEDS ORDERED: FAMOTIDINE 20 MG TABLET ONE (02:50)
[2023-06-22] MEDS ORDERED: ACETAMINOPHEN 500 MG TABLET (FP) ONE (02:50)
[2023-06-22 02:52] LABS: POTASSIUM 3.7 mmol/L (3.5-5.1)
[2023-06-22 02:54] LABS: CALCIUM 8.3 mg/dL (8.5-10.1)
[2023-06-22 02:55] LABS: BLOOD UREA NITROGEN 11.1 mg/dL (7-18)
[2023-06-22 02:58] LABS: CREATININE 0.8 mg/dL (0.55-1.3)
[2023-06-22 03:13] LABS: BILIRUBIN,TOTAL 0.2 mg/dL (0.2-1)
[2023-06-22] MEDS ORDERED: SIMETHICONE 80 MG TAB.CHEW (FP) PO ONE (03:16)
[2023-06-22] MEDS ORDERED: SIMETHICONE 80 MG TAB.CHEW (FP) ONE (03:19)
[2023-06-22] MEDS ORDERED: metroNIDAZOLE 250 MG TABLET ONE (03:40)
[2023-06-22] MEDS ORDERED: metroNIDAZOLE 250 MG TABLET PO ONE (03:44)
== END 2023-06-22 03:36 | disposition home or self-care (01) ==
LOC: JER 01:05
DX: K52.9 Noninfective gastroenteritis and colitis, unspecified (principal)
CPT/HCPCS: 36415; 71046-TC-FY; 76705-TC; 80053; 83690; 84484; 84703; 85025; 93005; 93010; 99285-25